=== PATIENT | male | born 1960 | race Two or more races ===

== ENCOUNTER → 2016-07-26 | Day surgery (SDC) | payer OTHER ==
[~2016-07-26] MED LIST: BUPIVACAINE-EPI 0.5%-1:200000 50 ML VIAL. ONE; CEFAZOLIN 1GM IVPB FOR OMNI 50 ML IV ONE; CEFAZOLIN 1GM IVPB FOR OMNI 50 ML IV PRN; DEXAMETHASONE SOD PHOS 20 MG/5 ML VIAL. ONE; FAMOTIDINE 20 MG/2 ML VIAL ONE; FENTANYL PF 100 MCG/2 ML VIAL. IV PRN; FENTANYL PF 100 MCG/2 ML VIAL. ONE; GLYCOPYRROLATE 1 MG/5 ML VIAL. ONE; IV RINGERS,LACTATED 1000ML 1,000 ML IV SCH; KETOROLAC 30 MG/ML SYRINGE FOR OR. INJ ONE; LIDOCAINE 1% 1 ML SYRINGE. ID PRN; LIDOCAINE 2% 100 MG/5 ML DISP.SYRIN. ONE; MIDAZOLAM HCL 2 MG/2 ML VIAL. IV PRN; NEOSTIGMINE METHYLSULFATE 5 MG/5 ML SYRINGE. ONE; ONDANSETRON PF 4 MG/2 ML VIAL. ONE; OXYC-244 PO; PROPOFOL 20 ML IV ONE; ROCURONIUM 50 MG/5 ML VIAL. ONE; SEVOFLURANE 61 TO 120 MINUTES. IH ONE; SEVOFLURANE > 120 MINUTES. IH ONE
[2016-07-26 07:51] LABS: BASO # 0.1 x10^3/uL (0.0-0.2); BASO % 1 % (0-3); EOS % 2 % (0-3); HEMATOCRIT 41.7 % (39.0-53.0); HEMOGLOBIN 14.3 g/dL (13.0-17.5); LYMPH # 1.6 x10^3/uL (1.0-4.8); LYMPH % 29 % (24-48); MEAN CORPUSCULAR HEMOGLOBIN 31 pg (25-35); MEAN CORPUSCULAR HGB CONC 34 g/dL (31-37); MEAN CORPUSCULAR VOLUME 91 fL (79-100); MONO % 7 % (0-9); NEUT % 61 % (31-73); PLATELET COUNT 189 x10^3/uL (140-400); RED CELL DISTRIBUTION WIDTH 13.2 % (11.5-14.5); WHITE BLOOD COUNT 5.4 x10^3/uL (4.0-11.0)
[2016-07-26 08:01] LABS: INR 1.1 (0.8-1.1); PROTHROMBIN TIME PATIENT 13.3 SEC (11.7-14.0)
[2016-07-26 08:04] LABS: CALCIUM 8.6 mg/dL (8.5-10.1); CREATININE 0.9 mg/dL (0.7-1.3); GFR 86.7
[2016-07-26 08:10] LABS: ALBUMIN 3.6 g/dL (3.4-5.0); ALBUMIN/GLOBULIN RATIO 0.9 (1.0-1.7); TOTAL BILIRUBIN 0.7 mg/dL (0.2-1.0); TOTAL PROTEIN 7.4 g/dL (6.4-8.2)
--- NOTE | 2016-07-26 08:38 | PDOC ---
SURGICAL PROGRESS NOTE Subjective No changes to dictated H&P. Vital Signs Vital Signs Date Time Temp Pulse Resp B/P Pulse Ox O2 Delivery O2 Flow Rate FiO2 07/26/16 07:31 98.2 62 16 96/66 98 Room Air 98.2 Labs Laboratory Tests Test 07/26/16 07:30 White Blood Count 5.4x10^3/uL (4.0-11.0) Red Blood Count 4.60x10^6/uL (4.30-5.70) Hemoglobin 14.3g/dL (13.0-17.5) Hematocrit 41.7% (39.0-53.0) Mean Corpuscular Volume 91fL (79-100) Mean Corpuscular Hemoglobin 31pg (25-35) Mean Corpuscular Hemoglobin Concent 34g/dL (31-37) Red Cell Distribution Width 13.2% (11.5-14.5) Platelet Count 189x10^3/uL (140-400) Neutrophils (%) (Auto) 61% (31-73) Lymphocytes (%) (Auto) 29% (24-48) Monocytes (%) (Auto) 7% (0-9) Eosinophils (%) (Auto) 2% (0-3) Basophils (%) (Auto) 1% (0-3) Neutrophils # (Auto) 3.3x10^3uL (1.8-7.7) Lymphocytes # (Auto) 1.6x10^3/uL (1.0-4.8) Monocytes # (Auto) 0.4x10^3/uL (0.0-1.1) Eosinophils # (Auto) 0.1x10^3/uL (0.0-0.7) Basophils # (Auto) 0.1x10^3/uL (0.0-0.2) Prothrombin Time 13.3SEC (11.7-14.0) Prothromb Time International Ratio 1.1 (0.8-1.1) Sodium Level 142mmol/L (136-145) Potassium Level 4.0mmol/L (3.5-5.1) Chloride Level 106mmol/L (98-107) Carbon Dioxide Level 27mmol/L (21-32) Anion Gap 9 (6-14) Blood Urea Nitrogen 9mg/dL (8-26) Creatinine 0.9mg/dL (0.7-1.3) Estimated GFR (Cockcroft-Gault) 86.7 BUN/Creatinine Ratio 10 (6-20) Glucose Level 99mg/dL (70-99) Calcium Level 8.6mg/dL (8.5-10.1) Total Bilirubin 0.7mg/dL (0.2-1.0) Aspartate Amino Transf (AST/SGOT) 22U/L (15-37) Alanine Aminotransferase (ALT/SGPT) 36U/L (16-63) Alkaline Phosphatase 70U/L (46-116) Total Protein 7.4g/dL (6.4-8.2) Albumin 3.6g/dL (3.4-5.0) Albumin/Globulin Ratio 0.9 (1.0-1.7) Laboratory Tests Test 07/26/16 07:30 White Blood Count 5.4x10^3/uL (4.0-11.0) Red Blood Count 4.60x10^6/uL (4.30-5.70) Hemoglobin 14.3g/dL (13.0-17.5) Hematocrit 41.7% (39.0-53.0) Mean Corpuscular Volume 91fL (79-100) Mean Corpuscular Hemoglobin 31pg (25-35) Mean Corpuscular Hemoglobin Concent 34g/dL (31-37) Red Cell Distribution Width 13.2% (11.5-14.5) Platelet Count 189x10^3/uL (140-400) Neutrophils (%) (Auto) 61% (31-73) Lymphocytes (%) (Auto) 29% (24-48) Monocytes (%) (Auto) 7% (0-9) Eosinophils (%) (Auto) 2% (0-3) Basophils (%) (Auto) 1% (0-3) Neutrophils # (Auto) 3.3x10^3uL (1.8-7.7) Lymphocytes # (Auto) 1.6x10^3/uL (1.0-4.8) Monocytes # (Auto) 0.4x10^3/uL (0.0-1.1) Eosinophils # (Auto) 0.1x10^3/uL (0.0-0.7) Basophils # (Auto) 0.1x10^3/uL (0.0-0.2) Prothrombin Time 13.3SEC (11.7-14.0) Prothromb Time International Ratio 1.1 (0.8-1.1) Sodium Level 142mmol/L (136-145) Potassium Level 4.0mmol/L (3.5-5.1) Chloride Level 106mmol/L (98-107) Carbon Dioxide Level 27mmol/L (21-32) Anion Gap 9 (6-14) Blood Urea Nitrogen 9mg/dL (8-26) Creatinine 0.9mg/dL (0.7-1.3) Estimated GFR (Cockcroft-Gault) 86.7 BUN/Creatinine Ratio 10 (6-20) Glucose Level 99mg/dL (70-99) Calcium Level 8.6mg/dL (8.5-10.1) Total Bilirubin 0.7mg/dL (0.2-1.0) Aspartate Amino Transf (AST/SGOT) 22U/L (15-37) Alanine Aminotransferase (ALT/SGPT) 36U/L (16-63) Alkaline Phosphatase 70U/L (46-116) Total Protein 7.4g/dL (6.4-8.2) Albumin 3.6g/dL (3.4-5.0) Albumin/Globulin Ratio 0.9 (1.0-1.7) DARCY SWEENEY MD Jul 26, 2016 08:38
--- NOTE | 2016-07-26 08:41 | PDOC ---
SURGICAL PROGRESS NOTE Subjective OP Note: Surgeon.................................... Sweeney Pre op diagnosis........................ Right Inguinal hernia Post op diagnosis...................... Right Inguinal hernia Anesthesia................................ General Procedure.................................. Right Inguinal hernia repair with mesh Drains........................................ None Fluids........................................ See anesthesia sheet Blood loss.................................. 20cc Condition.................................... Satisfactory Vital Signs Vital Signs Date Time Temp Pulse Resp B/P Pulse Ox O2 Delivery O2 Flow Rate FiO2 07/26/16 07:31 98.2 62 16 96/66 98 Room Air 98.2 Labs Laboratory Tests Test 07/26/16 07:30 White Blood Count 5.4x10^3/uL (4.0-11.0) Red Blood Count 4.60x10^6/uL (4.30-5.70) Hemoglobin 14.3g/dL (13.0-17.5) Hematocrit 41.7% (39.0-53.0) Mean Corpuscular Volume 91fL (79-100) Mean Corpuscular Hemoglobin 31pg (25-35) Mean Corpuscular Hemoglobin Concent 34g/dL (31-37) Red Cell Distribution Width 13.2% (11.5-14.5) Platelet Count 189x10^3/uL (140-400) Neutrophils (%) (Auto) 61% (31-73) Lymphocytes (%) (Auto) 29% (24-48) Monocytes (%) (Auto) 7% (0-9) Eosinophils (%) (Auto) 2% (0-3) Basophils (%) (Auto) 1% (0-3) Neutrophils # (Auto) 3.3x10^3uL (1.8-7.7) Lymphocytes # (Auto) 1.6x10^3/uL (1.0-4.8) Monocytes # (Auto) 0.4x10^3/uL (0.0-1.1) Eosinophils # (Auto) 0.1x10^3/uL (0.0-0.7) Basophils # (Auto) 0.1x10^3/uL (0.0-0.2) Prothrombin Time 13.3SEC (11.7-14.0) Prothromb Time International Ratio 1.1 (0.8-1.1) Sodium Level 142mmol/L (136-145) Potassium Level 4.0mmol/L (3.5-5.1) Chloride Level 106mmol/L (98-107) Carbon Dioxide Level 27mmol/L (21-32) Anion Gap 9 (6-14) Blood Urea Nitrogen 9mg/dL (8-26) Creatinine 0.9mg/dL (0.7-1.3) Estimated GFR (Cockcroft-Gault) 86.7 BUN/Creatinine Ratio 10 (6-20) Glucose Level 99mg/dL (70-99) Calcium Level 8.6mg/dL (8.5-10.1) Total Bilirubin 0.7mg/dL (0.2-1.0) Aspartate Amino Transf (AST/SGOT) 22U/L (15-37) Alanine Aminotransferase (ALT/SGPT) 36U/L (16-63) Alkaline Phosphatase 70U/L (46-116) Total Protein 7.4g/dL (6.4-8.2) Albumin 3.6g/dL (3.4-5.0) Albumin/Globulin Ratio 0.9 (1.0-1.7) Laboratory Tests Test 07/26/16 07:30 White Blood Count 5.4x10^3/uL (4.0-11.0) Red Blood Count 4.60x10^6/uL (4.30-5.70) Hemoglobin 14.3g/dL (13.0-17.5) Hematocrit 41.7% (39.0-53.0) Mean Corpuscular Volume 91fL (79-100) Mean Corpuscular Hemoglobin 31pg (25-35) Mean Corpuscular Hemoglobin Concent 34g/dL (31-37) Red Cell Distribution Width 13.2% (11.5-14.5) Platelet Count 189x10^3/uL (140-400) Neutrophils (%) (Auto) 61% (31-73) Lymphocytes (%) (Auto) 29% (24-48) Monocytes (%) (Auto) 7% (0-9) Eosinophils (%) (Auto) 2% (0-3) Basophils (%) (Auto) 1% (0-3) Neutrophils # (Auto) 3.3x10^3uL (1.8-7.7) Lymphocytes # (Auto) 1.6x10^3/uL (1.0-4.8) Monocytes # (Auto) 0.4x10^3/uL (0.0-1.1) Eosinophils # (Auto) 0.1x10^3/uL (0.0-0.7) Basophils # (Auto) 0.1x10^3/uL (0.0-0.2) Prothrombin Time 13.3SEC (11.7-14.0) Prothromb Time International Ratio 1.1 (0.8-1.1) Sodium Level 142mmol/L (136-145) Potassium Level 4.0mmol/L (3.5-5.1) Chloride Level 106mmol/L (98-107) Carbon Dioxide Level 27mmol/L (21-32) Anion Gap 9 (6-14) Blood Urea Nitrogen 9mg/dL (8-26) Creatinine 0.9mg/dL (0.7-1.3) Estimated GFR (Cockcroft-Gault) 86.7 BUN/Creatinine Ratio 10 (6-20) Glucose Level 99mg/dL (70-99) Calcium Level 8.6mg/dL (8.5-10.1) Total Bilirubin 0.7mg/dL (0.2-1.0) Aspartate Amino Transf (AST/SGOT) 22U/L (15-37) Alanine Aminotransferase (ALT/SGPT) 36U/L (16-63) Alkaline Phosphatase 70U/L (46-116) Total Protein 7.4g/dL (6.4-8.2) Albumin 3.6g/dL (3.4-5.0) Albumin/Globulin Ratio 0.9 (1.0-1.7) DARCY SWEENEY MD Jul 26, 2016 08:41
--- NOTE | 2016-07-26 11:38 | DISCH ---
DISCHARGE INSTRUCTIONS Condition on Discharge Condition on Discharge: Stable Diet after Discharge Diet after Discharge: Regular Wound Incision Care Wound Care Equipment: Dressings DARCY SWEENEY MD Jul 26, 2016 11:38
[2016-07-26 12:37] VITALS: BP 119/61
--- NOTE | 2016-07-26 23:22 | OP ---
DATE OF SURGERY: SURGEON: Sabino Sweeney MD PREOPERATIVE DIAGNOSIS: Right inguinal hernia. POSTOPERATIVE DIAGNOSIS: Right inguinal hernia, direct type. ANESTHESIA: General. PROCEDURE: Repair of right inguinal hernia. TECHNIQUE: Within under general anesthesia, the patient was properly prepped and draped in routine fashion. An incision was made with a 15 blade, carried through the skin following the skin lines in the right groin. We carried through the skin and then divided the subcutaneous with cautery down to the fascia. We then made a small incision in the fashion in the direction of the fibers. We spread with scissors under this and then opened it up to the external inguinal ring. The mass was clearly seen medial to the cord structures. We then freed up the cord from the medial narrow aspects of Poupart's ligament and then encircled the cord structures with my finger at the pubic tubercle. We pulled up with a Jasmin drain and divided some of the cremasteric fibers with cautery. The mass was easily seen and it was simply pushed away from the surrounding tissues using gauze, pads and sometimes Metzenbaum scissors. We then were able to invert it well up into the posterior floor and then passed through an extra-large PerFix plug there. We sutured the PerFix plugs to the pubic tubercle and the very deep areas in an interrupted fashion of the Poupart's ligament and medially to transversalis fascia. We then placed a patch over this and sutured it around the cord structures with 2-0 Prolene, so that they would not be too tight. We inspected the area. There was no tension or snugness to the cord structures and the patch was placed well down on the posterior floor. We started with 2 #0 Prolene sutures at the pubic tubercle and took one laterally taking the shelving edge to Poupart's ligament well up passing the internal inguinal ring. We then took the medial and took it taking the transversalis fascia up passing the internal inguinal ring and back down to the Poupart's ligament. Both were tied separately. 0.5% Marcaine was injected with epinephrine into the sutured areas. The mesh was laid flat against the anterior abdominal wall and was sutured in place using very lose 4-0 Vicryls. We then removed the Bolivar drain and placed the cord bag in its normal position and then closed the external oblique aponeurosis using 2-0 Prolene. The subcutaneous was irrigated with saline and the external oblique aponeurosis was anesthetized with 0.5% Marcaine and epinephrine and then we closed the subcutaneous with 4-0 Vicryl and closed the skin using a subcuticular 5-0 Vicryl. Procedure was now terminated as Tegaderm dressing was applied. The blood loss was probably 5-10 mL. FLUIDS: Fluids given can be obtained from the anesthesia sheet. DRAINS: No drains were used. CONDITION OF THE PATIENT: Satisfactory as he is returned to the recovery room. SABINO SWEENEY MD DR: HEBER/nts JOB#: [id number] / [id number]
--- NOTE | 2016-07-29 10:25 | HP ---
ADMIT DATE: 07/26/2016 HISTORY OF PRESENT ILLNESS: The patient has had for about a month a mass in his right groin and he went to see his probably care doctor, Dr. Wheeler ____ to me. She thinks he has a hernia. The patient denies a lot of pain, but does state that it is causing discomfort, mostly when he is up a lot and when he lays down sometimes it goes away. PAST MEDICAL HISTORY: Shows normal childhood diseases. He does not have diabetes, ____, cancer, TB, asthma or any diseases. MEDICATIONS: Takes no medications for anything. ALLERGIES: He has no allergies. FAMILY HISTORY: Noncontributory. PHYSICAL EXAMINATION: GENERAL: Shows an alert male in no acute distress. HEAD, EYES, NOSE AND THROAT: Grossly normal. LUNGS: Clear bilaterally to auscultation. HEART: Had no murmurs, heaves, friction, rubs or thrills and had a rate of 72 beats minute and it was regular. ABDOMEN: Soft, no masses noted. Inspection of the groin shows normal male genitalia, has no masses except for the right groin area, with increased intraabdominal pressure ____ as a mass, which will be partially reduced, did cause some discomfort on reduction. He otherwise is doing well, has normal GI function, no problems with urination of function either. IMPRESSION: Right inguinal hernia. DARCY SWEENEY MD DR: HW/nts JOB#: [id number] / [id number] DARCY Leiva MD
== END | disposition home or self-care (01) ==
LOC: SURG 07:02
PROVIDERS: ATTEND Specialist
DX: K40.90 Unilateral inguinal hernia, without obstruction or gangrene, not specified as recurrent (principal); E78.00 Pure hypercholesterolemia, unspecified; Z79.01 Long term (current) use of anticoagulants; Z72.89 Other problems related to lifestyle
CPT/HCPCS: 36415; 49505; 80053; 85027; 85610; A4215; C1781; J0690; J1100; J1885; J2405; J2704; J2710; J3010; J3490; S0028